=== PATIENT | male | born 1955 | race Caucasian/White ===

== ENCOUNTER 2021-07-14 09:55 | Outpatient (CLI) | payer MEDICARE, SELFPAY ==
--- NOTE | ~2021-07-14 | CT_ITS ---
EXAMINATION: CT diagnostic chest wo con EXAM DATE: 07/14/2021 10:35 INDICATION: R91.8 - Other nonspecific abnormal finding of lung field . TECHNIQUE: Spiral CT of the chest without contrast. Axial, coronal and sagittal images of the chest were reviewed. Coronal maximum intensity pixel images of chest reviewed. The dose-length product ( DLP) for this examination was 253.37 mGy-cm. The exposure was tailored according to patient size (au to mA exposure control), and iterative reconstruction (ASIR) was used as additional dose reduction te chnique. There is no prior study for comparison. FINDINGS: There is moderate emphysema. There is pleural-based left lower lobe superior segmental nod ule along the major fissure measuring 7 mm average axial dimension axial image 44. There is left uppe r lobe superior segmental calcified granuloma not far from this. Several other smaller noncalcified l portia nodules identified along the periphery, and bilateral lower lobe reticulonodular post infectious opacities. Biapical scarring. There are no pleural or pericardial effusions. Tracheobronchial tree is patent. There is no media stinal, hilar or axillary lymphadenopathy. There is no pneumothorax. Heart normal in size. No e vidence of coronary arterial calcification. Upper abdomen is unremarkable. There is thoracic spond ylosis without osteoblastic or osteolytic lesions identified. IMPRESSION: 1. Scattered lung opacities most likely postinfectious residua but a follow-up six-month chest CT wi thout contrast recommended for largest left lower lobe nodule, assuming no prior study for comparison at outside institution. 2. Moderate emphysema and hyperinflation. Reviewed, dictated and finalized at location A. [facility] IMPRESSION: 1. Scattered lung opacities most likely postinfectious residua but a follow-up six-month chest CT without contrast recommended for largest left lower lobe no dule, assuming no prior study for comparison at outside institution. 2. Moderate emphysema and hyperinflation.
== END 2021-07-14 09:56 | disposition home or self-care (01) ==
LOC: ANHIMG 09:59
PROVIDERS: PCP Internal Medicine; Visit Provider Internal Medicine Pulmonary Disease
DX: R91.8 Other nonspecific abnormal finding of lung field (principal); J43.9 Emphysema, unspecified
CPT/HCPCS: 71250

== ENCOUNTER 2022-07-19 10:08 | Outpatient (CLI) | payer MEDICARE, SELFPAY ==
--- NOTE | ~2022-07-19 | CT_ITS ---
CT Scan of the Chest without Contrast: Clinical Indication: Lung nodule Technique: Contiguous sections were acquired throughout the chest without intravenous contrast. Dose reduction technique was used on this scan by utilizing automated exposure control and iterative recon struction technique. The dose-length product (DLP) was 217.94 mGy-cm. COMPARISON: 07/14/2021 Findings: There is no evidence of any significant mediastinal, hilar or axillary lymphadenopathy. The mediastin al soft tissues appear normal. There is no evidence of pleural or pericardial effusion. Moderate emphysematous change noted at the upper lobes. There are minimal tree-in-bud type opacities at the bilateral lung bases. Stable calcified nodule along the left fissure. Stable crescentic nodule in the left upper lobe adjacent to the descending thoracic aorta (axial image 45).. Images through the upper abdomen reveal no abnormalities. DISH of the thoracic spine noted. Impression: Stable left upper lobe pulmonary nodule, as noted above. One-year follow-up CT advised. Minimal tree-in-bud type opacities at the lung bases are unchanged, suggestive of post inflammatory s carring. Moderate emphysema. Reviewed, dictated and finalized at location . Impression: Stable left upper lobe pulmonary nodule, as noted above. One-year follow-up CT advised. Minimal tree-in-bud type opacities at the lung bases are unchanged, suggestive of post inflammatory scarring. Moderate emphysema.
== END 2022-07-19 10:09 | disposition home or self-care (01) ==
PROVIDERS: PCP Internal Medicine; Visit Provider Internal Medicine Pulmonary Disease
DX: R91.1 Solitary pulmonary nodule (principal); R91.8 Other nonspecific abnormal finding of lung field; J43.9 Emphysema, unspecified
CPT/HCPCS: 71250

== ENCOUNTER 2023-07-28 12:30 | Outpatient (CLI) | payer MEDICARE, SELFPAY ==
--- NOTE | ~2023-07-28 | CT_ITS ---
CT Scan of the Chest without Contrast: Clinical Indication: Abnormal finding of lung field Technique: Contiguous sections were acquired throughout the chest without intravenous contrast. Dose reduction technique was used on this scan by utilizing automated exposure control and iterative recon struction technique. The dose-length product (DLP) was 238.91 mGy-cm. COMPARISON: 07/19/2022 Findings: There is no evidence of any significant mediastinal, hilar or axillary lymphadenopathy. The mediastin al soft tissues appear normal. There is no evidence of pleural or pericardial effusion. Calcified left upper lobe granuloma noted. Moderate emphysema present. There numerous bibasilar micro nodules and minimal interstitial thickening. There is a larger 7 mm nodule at the left lung base (axi al image 105). Stable left upper lobe nodule adjacent to the descending thoracic aorta (axial image 4 8). There is a 7 mm lingular nodule (axial image 87). Stable fissural nodules. Images through the upper abdomen reveal no abnormalities. Impression: Stable micronodular change and interstitial thickening at the lung bases, which could reflect chronic post inflammatory change. Stable additional subcentimeter pulmonary nodules in the left lung, as detailed above. No acute abnormality seen. Reviewed, dictated and finalized at location . Impression: Stable micronodular change and interstitial thickening at the lung bases, which could reflect chronic post inflammatory change. Stable additional subcentimeter pulmonary nodules in the left lung, as detailed above. No acute abnormality seen.
== END 2023-07-28 12:31 | disposition home or self-care (01) ==
PROVIDERS: PCP Internal Medicine; Visit Provider Internal Medicine Pulmonary Disease
DX: R91.8 Other nonspecific abnormal finding of lung field (principal)
CPT/HCPCS: 71250

== ENCOUNTER 2024-05-15 08:36 | Outpatient (CLI) | payer MEDICARE, SELFPAY ==
--- NOTE | 2024-05-15 11:00 | NEURO_ITS ---
Impression: # Complains of bilateral numbness of feet of long duration. Not Diabetic. ? # Motor/sensory axonal neuropathy bilaterally. ? # Needle/EMG exam abnormal with neurogenic changes. Nerve Conduction Studies Anti Sensory Summary Table ?Stim Site NR Peak (ms) P-T Amp (?V) Site1 Site2 Delta-P (ms) Dist (cm) Abdirahman (m/s) Left Sup Fibular Anti Sensory (Ant Lat Mall)??? NO RESPONSE 14 cm NR 14 cm Ant Lat Mall 16.0 Right Sup Fibular Anti Sensory (Ant Lat Mall)??? NO RESPONSE 14 cm NR 14 cm Ant Lat Mall 16.0 Left Sural Anti Sensory (Lat Mall)??? NO RESPONSE Calf NR Calf Lat Mall 16.0 Right Sural Anti Sensory (Lat Mall)??? NO RESPONSE Calf NR Calf Lat Mall 16.0 Motor Summary Table ?Stim Site NR Onset (ms) O-P Amp (mV) Site1 Site2 Delta-0 (ms) Dist (cm) Abdirahman (m/s) Left Peroneal Motor (Vastus Med) Ankle ? 5.0 0.2 Popit Ankle 10.8 43.0 40 Popit ? 15.8 0.2 Right Peroneal Motor (Vastus Med) Ankle ? 5.0 1.0 Popit Ankle 12.8 44.0 34 Popit ? 17.8 0.9 Left Tibial Motor (Abd Jenkins Brev) Ankle ? 5.3 2.5 Knee Ankle 14.3 44.0 31 Knee ? 19.6 0.6 Right Tibial Motor (Abd Jenkins Brev) Ankle ? 5.5 0.5 Knee Ankle 11.8 45.0 38 Knee ? 17.3 0.2 F Wave Studies ?NR F-Lat (ms) L-R F-Lat (ms) Left Peroneal (Mrkrs) (EDB)??? DISPERSED RESPONSE NR Right Peroneal (Mrkrs) (EDB)??? DISPERSED RESPONSE NR Left Tibial (Mrkrs) (Abd Hallucis)??? DISPERSED RESPONSE NR Right Tibial (Mrkrs) (Abd Hallucis)??? DISPERSED RESPONSE NR EMG ?Side Muscle Nerve Root Ins Act Fibs Amp Dur Recrt Comment Right AntTibialis Dp Br Fibular L4-5 Nml Nml Decr >12ms +1 Right Gastroc Tibial S1-2 Nml Nml Decr >12ms +1 Right Fibularis Long Sup Br Fibular L5-S1 Nml Nml Decr >12ms +1 Right Flex Dig Long Tibial L5-S2 Nml Nml Decr >12ms +1 Right Ext Dig Brev Dp Br Fibular L5, S1 Nml Nml Decr >12ms +2 Right QuadratusFem QuadFemoris L4-5, S1 Nml Nml Nml Nml Nml Left AntTibialis Dp Br Fibular L4-5 Nml Nml Decr >12ms +1 Left Gastroc Tibial S1-2 Nml Nml Decr >12ms +1 Left Fibularis Long Sup Br Fibular L5-S1 Nml Nml Decr >12ms +1 Left Flex Dig Long Tibial L5-S2 Nml Nml Decr >12ms +1 Left Ext Dig Brev Dp Br Fibular L5, S1 Nml Nml Decr >12ms +2 Left QuadratusFem QuadFemoris L4-5, S1 Nml Nml Nml Nml Nml MTDD
== END 2024-05-15 08:37 | disposition home or self-care (01) ==
PROVIDERS: PCP Internal Medicine; Visit Provider Podiatrist Foot & Ankle Surgery
DX: G62.9 Polyneuropathy, unspecified (principal); R20.0 Anesthesia of skin
CPT/HCPCS: 95886; 95910